=== PATIENT | male | born 1970 | race Caucasian/White ===

== ENCOUNTER 2016-07-21 07:55 | Emergency (ER) | payer SELFPAY ==
[2016-07-21] MEDS ORDERED: Tetan/Diph/Pertus SYR(Tdap)* 0.5 ML SYR(BOOSTRIX) use SYR IM ONE (08:56)
[2016-07-21] MEDS ORDERED: Ibuprofen TAB* 400 MG PO ONE (08:56)
--- NOTE | 2016-07-21 09:00 | ED ---
Upper Extremity Pain - HPI Summary HPI Summary: Patient has a history of neck pain and transient N/T with a deep ache in his right arm. He awoke this morning with pain and since he is not sleeping he came in for evaluation. He denies CP, SOB, HUANG or lack of function in the arm, but usually his pain improves with position change. He denies trauma or change in activity level, although he does work two jobs. He does not have insurance so he has been unable to afford to see Dr. Zhang, who is his PCP. He declines imaging. - History of Current Complaint Chief Complaint: EDLacSutureRecheck Stated Complaint: FINGER LAC Time Seen by Provider: 07/21/16 08:38 Hx Obtained From: Patient Mechanism Of Injury: Unknown Onset/Duration: Started Weeks Ago, Atraumatic, Worse Since - last week Timing: Intermittent Severity Initially: Mild Severity Currently: Moderate Pain Location: Arm Character: Aching Aggravating Factor(s): Nothing Alleviating Factor(s): Nothing Associated Signs & Symptoms: Positive: Numbness/Tingling - intermittent Related History: Dominant Hand Right PMH/Surg Hx/FS Hx/Imm Hx Musculoskeletal History: Reports: Other Musculoskeletal History - neck pain Infectious Disease History: No Infectious Disease History: Denies: Traveled Outside the [place] in Last 30 Days - Family History Known Family History: Positive: None - Social History Occupation: Employed Full-time Lives: With Family Alcohol Use: None Substance Use Type: Reports: None Smoking Status (MU): Light Every Day Tobacco Smoker Cessation Counseling: Patient Advised to Stop Review of Systems Negative: Fever Negative: Chest Pain Negative: Shortness Of Breath Negative: Vomiting, Nausea Positive: Myalgia. Negative: Edema Positive: Paresthesia. Negative: Headache, Weakness, Numbness All Other Systems Reviewed And Are Negative: Yes Physical Exam Triage Information Reviewed: Yes Vital Signs On Initial Exam: Initial Vitals Temp Pulse Resp BP Pulse Ox 99.1 F 106 18 148/91 98 07/21/16 07:57 07/21/16 07:57 07/21/16 07:57 07/21/16 07:57 07/21/16 07:57 Vital Signs Reviewed: Yes Appearance: Positive: Well-Appearing, No Pain Distress, Obese Skin: Positive: Warm, Skin Color Reflects Adequate Perfusion, Dry, Soft Head/Face: Positive: Normal Head/Face Inspection Eyes: Positive: EOMI, ANALI, Conjunctiva Clear ENT: Positive: Hearing grossly normal, Pharynx normal Neck: Positive: Supple, Nontender, No Lymphadenopathy Respiratory/Lung Sounds: Positive: Clear to Auscultation, Breath Sounds Present Cardiovascular: Positive: RRR Musculoskeletal: Positive: Strength/ROM Intact - 5/5 strength bilaterally in UE. Negative: Pain @ - I am unable to recreate his pain, Edema Right Neurological: Positive: Sensory/Motor Intact, Alert, Oriented to Person Place, Time, Reflexes Intact, NV Bundle Intact Distally Psychiatric: Positive: Affect/Mood Appropriate AVPU Assessment: Alert Diagnostics - Vital Signs Vital Signs Temp Pulse Resp BP Pulse Ox 07/21/16 07:59 98.3 F 101 18 148/91 99 07/21/16 07:57 99.1 F 106 18 148/91 98 - Laboratory Lab Statement: Any lab studies that have been ordered have been reviewed, and results considered in the medical decision making process. Course/Dx - Diagnoses Differential Diagnosis/HQI/PQRI: Positive: Arthritis, Bursitis, Contusion, Fracture (Closed), Hematoma, Strain, Sprain Provider Diagnoses: Cervical radiculopathy Discharge - Discharge Plan Condition: Stable Disposition: HOME Prescriptions: Gabapentin CAP(*) [Neurontin 100 mg CAP(*)] 100 mg PO DAILY #90 cap Patient Education Materials: Cervical Radiculopathy (ED) Forms: *Work Release Referrals: Non Staff,Doctor [Primary Care Provider] - Gerald Zhang MD [Medical Doctor] - Additional Instructions: Please use the medication as prescribed and follow-up with Dr. Zhang when your insurance is approved. Return to the emergency department if symptoms worsen.
--- NOTE | 2016-07-21 09:24 | ED ---
Laceration/Wound HPI - HPI Summary HPI Summary: Patient has a history of neck pain and transient N/T with a deep ache in his right arm. He awoke this morning with pain and since he is not sleeping he came in for evaluation. He denies CP, SOB, HUANG or lack of function in the arm, but usually his pain improves with position change. He denies trauma or change in activity level, although he does work two jobs. He does not have insurance so he has been unable to afford to see Dr. Zhang, who is his PCP. He declines imaging. - History of Current Complaint Stated Complaint: FINGER LAC Time Seen by Provider: 07/21/16 08:38 Hx Obtained From: Patient Pain Intensity: 2 PMH/Surg Hx/FS Hx/Imm Hx Musculoskeletal History: Reports: Other Musculoskeletal History - neck pain Infectious Disease History: No Infectious Disease History: Denies: Traveled Outside the [place] in Last 30 Days - Family History Known Family History: Positive: None - Social History Occupation: Employed Full-time Lives: With Family Alcohol Use: None Substance Use Type: Reports: None Smoking Status (MU): Light Every Day Tobacco Smoker Cessation Counseling: Patient Advised to Stop Review of Systems Negative: Fever Negative: Chest Pain Negative: Shortness Of Breath Negative: Vomiting, Nausea Positive: Myalgia. Negative: Edema Positive: Paresthesia. Negative: Headache, Weakness, Numbness All Other Systems Reviewed And Are Negative: Yes Physical Exam Triage Information Reviewed: Yes Vital Signs On Initial Exam: Initial Vitals Temp Pulse Resp BP Pulse Ox 99.1 F 106 18 148/91 98 07/21/16 07:57 07/21/16 07:57 07/21/16 07:57 07/21/16 07:57 07/21/16 07:57 Vital Signs Reviewed: Yes Appearance: Positive: Well-Appearing, No Pain Distress, Obese Skin: Positive: Warm, Skin Color Reflects Adequate Perfusion, Dry, Soft Head/Face: Positive: Normal Head/Face Inspection Eyes: Positive: EOMI, ANALI, Conjunctiva Clear ENT: Positive: Hearing grossly normal, Pharynx normal Neck: Positive: Supple, Nontender, No Lymphadenopathy Respiratory/Lung Sounds: Positive: Clear to Auscultation, Breath Sounds Present Cardiovascular: Positive: RRR Musculoskeletal: Positive: Strength/ROM Intact - 5/5 strength bilaterally in UE. Negative: Pain @ - I am unable to recreate his pain, Edema Right Neurological: Positive: Sensory/Motor Intact, Alert, Oriented to Person Place, Time, Reflexes Intact, NV Bundle Intact Distally Psychiatric: Positive: Affect/Mood Appropriate AVPU Assessment: Alert Diagnostics - Vital Signs Vital Signs Temp Pulse Resp BP Pulse Ox 07/21/16 07:59 98.3 F 101 18 148/91 99 07/21/16 07:57 99.1 F 106 18 148/91 98 - Laboratory Lab Statement: Any lab studies that have been ordered have been reviewed, and results considered in the medical decision making process. Laceration Repair Course/Dx - Clinical Impression Provider Diagnoses: Cervical radiculopathy Discharge - Discharge Plan Condition: Stable Disposition: HOME Prescriptions: Gabapentin CAP(*) [Neurontin 100 mg CAP(*)] 100 mg PO DAILY #90 cap Patient Education Materials: Cervical Radiculopathy (ED) Forms: *Work Release Referrals: Non Staff,Doctor [Primary Care Provider] - Gerald Zhang MD [Medical Doctor] - Additional Instructions: Please use the medication as prescribed and follow-up with Dr. Zhang when your insurance is approved. Return to the emergency department if symptoms worsen.
--- NOTE | 2016-07-21 09:52 | ED ---
Laceration/Wound HPI - HPI Summary HPI Summary: Patient was at work preparing for the day and when he went to open the gate it malfunctioned and closed on his finger, slicing off the tip of his right index finger. He had intense pain and applied pressure to control bleeding. He is not sure if his tetanus is up to date. He has not taken anything for pain. - History of Current Complaint Stated Complaint: FINGER LAC Time Seen by Provider: 07/21/16 08:38 Hx Obtained From: Patient Mechanism of Injury: Sharp/Blunt Trauma Onset/Duration: Sudden Onset Aggravating: Movement Alleviating: Nothing Timing: Constant Onset Severity: Severe Current Severity: Mild Pain Intensity: 2 Associated Signs & Symptoms: Pain Related Hx: Dominant Hand (Right) PMH/Surg Hx/FS Hx/Imm Hx Musculoskeletal History: Reports: Other Musculoskeletal History - neck pain Infectious Disease History: No Infectious Disease History: Denies: Traveled Outside the [place] in Last 30 Days - Family History Known Family History: Positive: None - Social History Occupation: Employed Full-time Lives: With Family Alcohol Use: None Substance Use Type: Reports: None Smoking Status (MU): Light Every Day Tobacco Smoker Cessation Counseling: Patient Advised to Stop Review of Systems Negative: Decreased ROM, Edema Positive: Other - avulsion to tip of right index finger Negative: Paresthesia, Numbness All Other Systems Reviewed And Are Negative: Yes Physical Exam Triage Information Reviewed: Yes Vital Signs On Initial Exam: Initial Vitals Temp Pulse Resp BP Pulse Ox 99.1 F 106 18 148/91 98 07/21/16 07:57 07/21/16 07:57 07/21/16 07:57 07/21/16 07:57 07/21/16 07:57 Vital Signs Reviewed: Yes Appearance: Positive: Well-Appearing, Well-Nourished, Pain Distress Skin: Positive: Warm, Skin Color Reflects Adequate Perfusion, Dry, Tender - right index finger with 3mm diagonal avulsion of the medial tip and nail, Soft Head/Face: Positive: Normal Head/Face Inspection Eyes: Positive: EOMI, ANALI, Conjunctiva Clear ENT: Positive: Hearing grossly normal Respiratory/Lung Sounds: Positive: Breath Sounds Present Cardiovascular: Positive: RRR Musculoskeletal: Positive: Strength/ROM Intact - DIP and PIP of right index finger intact, Pain @ - tip of right index finger Neurological: Positive: Sensory/Motor Intact, Alert, Oriented to Person Place, Time, NV Bundle Intact Distally Psychiatric: Positive: Affect/Mood Appropriate AVPU Assessment: Alert Diagnostics - Vital Signs Vital Signs Temp Pulse Resp BP Pulse Ox 07/21/16 07:59 98.3 F 101 18 148/91 99 07/21/16 07:57 99.1 F 106 18 148/91 98 - Laboratory Lab Statement: Any lab studies that have been ordered have been reviewed, and results considered in the medical decision making process. Laceration Repair Course/Dx - Differential Dx Differental Diagnoses: Abrasion, Avulsion, Cellulitis, Dehiscence, Hematoma, Laceration, Puncture Wound - Clinical Impression Provider Diagnoses: Avulsion of skin of index finger Discharge - Discharge Plan Condition: Stable Disposition: HOME Patient Education Materials: Skin Avulsion (ED) Forms: *Work Release Referrals: Non Staff,Doctor [Primary Care Provider] - Additional Instructions: Please keep your dressing in place for the next 48 hours. You may then remove and perform twice daily soak in warm soapy water for three days. Pat dry and then cover with a clean dry non-stick bandage. Elevate your hand above your heart and use ibuprofen 600mg three times daily with meals for 3-5 days to decrease swelling and pain. Follow-up with your primary care provider next week for a wound check in t 3-5 days. Return to the emergency department if symptoms worsen.
[2016-07-21 10:34] VITALS: BP 148/77
== END 2016-07-21 10:34 | disposition home or self-care (01) ==
LOC: ED 07:55
DX: S61.210A Laceration without foreign body of right index finger without damage to nail, initial encounter (principal); W45.8XXA Other foreign body or object entering through skin, initial encounter; Y92.9 Unspecified place or not applicable; F17.200 Nicotine dependence, unspecified, uncomplicated
CPT/HCPCS: 90471; 90715; 99281; A9270-GY